=== PATIENT | female | born 1990 | race Caucasian/White ===

== ENCOUNTER 2016-12-05 07:10 | Inpatient (IN) | payer BC ==
[2016-12-05] MEDS ORDERED: Lidocaine 1% 50 ML MDV INJECT PRN (07:49)
[2016-12-05] MEDS ORDERED: Aluminum Hydroxide/Magnesium Hydroxide/Simethicone Susp 30 ML Cup PO PRN (07:49)
[2016-12-05] MEDS ORDERED: Ondansetron 4 MG/2 ML SDV IVPUSH PRN (07:49)
[2016-12-05] MEDS ORDERED: Nalbuphine 20 MG/1 ML Amp IVPUSH PRN (07:49)
[2016-12-05] MEDS ORDERED: Oxytocin/Lactated Ringers 10 UNIT/1,000 ML BAG IV SCH ×2 (08:00→17:15)
[2016-12-05] MEDS: Lactated Ringers 1,000 ML IV SCH ×3 (08:03→20:22)
[2016-12-05] MEDS ORDERED: Ampicillin 2 GM in Sodium Chloride 0.9% 100 ML IV ONE (08:30)
[2016-12-05] MEDS ORDERED: fentaNYL 100 MCG/2 ML SDV EPIDUR PRN (10:28)
[2016-12-05] MEDS ORDERED: diphenhydrAMINE 50 MG/ML SDV IVPUSH PRN (10:28)
[2016-12-05] MEDS ORDERED: ePHEDrine 50 MG/ML SDV IVPUSH PRN (10:28)
[2016-12-05] MEDS ORDERED: Bupivacaine/fentaNYL/NS 100 ML Bag EPIDUR SCH (10:30)
--- NOTE | 2016-12-05 10:59 | PCM.PREANE ---
Preanesthetic Assessment - Anesthesia/Transfusion/Family Hx Anesthesia History: Prior Anesthesia Without Reaction Family History of Anesthesia Reaction: No Transfusion History: No Prior Transfusion(s) - Review of Systems General: No Symptoms Pulmonary: No Symptoms Cardiovascular: No Symptoms Gastrointestinal: No symptoms Neurological: No Symptoms Other: Reports: None - Physical Assessment Pulse: 80 O2 Sat by Pulse Oximetry: 98 Respiratory Rate: 17 Blood Pressure: 137/84 Temperature: 37.1 C Vital Signs: Last Vital Signs Temp 37.1 C 12/05/16 07:56 Pulse 80 12/05/16 07:56 Resp 17 12/05/16 07:56 BP 137/84 12/05/16 07:56 Pulse Ox 98 12/05/16 07:56 Height: 1.65 m Weight: 113.398 kg ASA Class: 2 Mental Status: Alert & Oriented x3 Airway Class: Mallampati = 1 Dentition: Reports: Normal Dentition Thyro-Mental Finger Breadths: 3 Mouth Opening Finger Breadths: 3 ROM/Head Extension: Full Lungs: Clear to auscultation, Normal respiratory effort Cardiovascular: Regular Rate, Regular Rhythm - Lab Values: Laboratory Last Values WBC 13.83 K/mm3 (3.98-10.04) H 12/05/16 08:07 RBC 4.50 M/mm3 (3.98-5.22) 12/05/16 08:07 Hgb 13.6 gm/L (11.2-15.7) 12/05/16 08:07 Hct 41.2 % (34.1-44.9) 12/05/16 08:07 MCV 91.6 fl (79.4-94.8) 12/05/16 08:07 MCH 30.2 pg (25.6-32.2) 12/05/16 08:07 MCHC 33.0 g/dl (32.2-35.5) 12/05/16 08:07 RDW Std Deviation 47.5 fL (36.4-46.3) H 12/05/16 08:07 Plt Count 236 K/mm3 (182-369) 12/05/16 08:07 MPV 10.6 fl (9.4-12.3) 12/05/16 08:07 Neut % (Auto) 81.4 % (34.0-71.1) H 12/05/16 08:07 Lymph % (Auto) 11.1 % (19.3-51.7) L 12/05/16 08:07 [place] % (Auto) 6.9 % (4.7-12.5) 12/05/16 08:07 Eos % (Auto) 0.2 (0.7-5.8) L 12/05/16 08:07 Baso % (Auto) 0.1 % (0.1-1.2) 12/05/16 08:07 Neut # (Auto) 11.24 K/mm3 (1.56-6.13) H 12/05/16 08:07 Lymph # (Auto) 1.54 K/mm3 (1.18-3.74) 12/05/16 08:07 [place] # (Auto) 0.96 K/mm3 (0.24-0.36) H 12/05/16 08:07 Eos # (Auto) 0.03 K/mm3 (0.04-0.36) L 12/05/16 08:07 Baso # (Auto) 0.02 K/mm3 (0.01-0.08) 12/05/16 08:07 - Allergies Allergies/Adverse Reactions: Allergies Allergy/AdvReac Type Severity Reaction Status Date / Time No Known Allergies Allergy Verified 12/05/16 07:48 - Anesthesia Plan Pre-Op Medication Ordered: None - Acknowledgements Anesthesia Type Planned: Epidural Pt an Appropriate Candidate for the Planned Anesthesia: Yes Alternatives and Risks of Anesthesia Discussed w Pt/Guardian: Yes Pt/Guardian Understands and Agrees with Anesthesia Plan: Yes PreAnesthesia Questionnaire - Past Health History Medical/Surgical History: Denies Medical/Surgical History Gastrointestinal History: Reports: GERD - CURRENT (IN HOUSE) MEDS Current Meds: Current Medications Al Hydroxide/Mg Hydroxide (Mag-Al Plus) 30 ml PO Q8H PRN PRN Reason: Heartburn Diphenhydramine HCl (Benadryl) 25 mg IVPUSH Q6H PRN PRN Reason: Itching Ephedrine Sulfate (Ephedrine Sulfate) 5 mg IVPUSH ASDIRECTED PRN PRN Reason: HYPOTENTSION Fentanyl (Sublimaze) 100 mcg EPIDUR Q3H PRN PRN Reason: PAIN Last Admin: 12/05/16 10:53 Dose: 100 mcg Fentanyl/Bupivacaine HCl (Fentanyl/Bupivacaine/Ns 2 Mcg-0.125% 100 Ml) 100 ml EPIDUR ASDIRECTED [facility] Last Admin: 12/05/16 10:53 Dose: 100 ml Ampicillin Sodium 1 gm/ Sodium (Chloride) 100 mls @ 200 mls/hr IV Q4H [facility] Lactated Ringer's (Ringers, Lactated) 1,000 mls @ 100 mls/hr IV ASDIRECTED [facility] Last Admin: 12/05/16 08:03 Dose: 100 mls/hr Oxytocin/Lactated Ringer's (Pitocin In Lr 10 Units/1,000 Ml) 10 unit in 1,000 mls @ 500 mls/hr IV ASDIRECTED [facility] Lidocaine HCl (Xylocaine 1%) 50 ml INJECT ONETIME PRN PRN Reason: perineal pain Nalbuphine HCl (Nubain) 10 mg IVPUSH Q2H PRN PRN Reason: Pain (moderate 4-6) Ondansetron HCl (Zofran) 4 mg IVPUSH Q4H PRN PRN Reason: Nausea/Vomiting Discontinued Medications Ampicillin Sodium 2 gm/ Sodium (Chloride) 100 mls @ 200 mls/hr IV ONETIME ONE Stop: 12/05/16 08:59 Last Admin: 12/05/16 08:05 Dose: 200 mls/hr Preanesthetic Assessment - PHYSICAL ASSESSMENT O2 Sat by Pulse Oximetry: 98 RR: 17 Vital Signs: Last Vital Signs Temp 37.1 C 12/05/16 07:56 Pulse 80 12/05/16 07:56 Resp 17 12/05/16 07:56 BP 137/84 12/05/16 07:56 Pulse Ox 98 12/05/16 07:56 Height: 1.65 m Weight: 113.398 kg - LAB Values: Laboratory Last Values WBC 13.83 K/mm3 (3.98-10.04) H 12/05/16 08:07 RBC 4.50 M/mm3 (3.98-5.22) 12/05/16 08:07 Hgb 13.6 gm/L (11.2-15.7) 12/05/16 08:07 Hct 41.2 % (34.1-44.9) 12/05/16 08:07 MCV 91.6 fl (79.4-94.8) 12/05/16 08:07 MCH 30.2 pg (25.6-32.2) 12/05/16 08:07 MCHC 33.0 g/dl (32.2-35.5) 12/05/16 08:07 RDW Std Deviation 47.5 fL (36.4-46.3) H 12/05/16 08:07 Plt Count 236 K/mm3 (182-369) 12/05/16 08:07 MPV 10.6 fl (9.4-12.3) 12/05/16 08:07 Neut % (Auto) 81.4 % (34.0-71.1) H 12/05/16 08:07 Lymph % (Auto) 11.1 % (19.3-51.7) L 12/05/16 08:07 [place] % (Auto) 6.9 % (4.7-12.5) 12/05/16 08:07 Eos % (Auto) 0.2 (0.7-5.8) L 12/05/16 08:07 Baso % (Auto) 0.1 % (0.1-1.2) 12/05/16 08:07 Neut # (Auto) 11.24 K/mm3 (1.56-6.13) H 12/05/16 08:07 Lymph # (Auto) 1.54 K/mm3 (1.18-3.74) 12/05/16 08:07 [place] # (Auto) 0.96 K/mm3 (0.24-0.36) H 12/05/16 08:07 Eos # (Auto) 0.03 K/mm3 (0.04-0.36) L 12/05/16 08:07 Baso # (Auto) 0.02 K/mm3 (0.01-0.08) 12/05/16 08:07 - ALLERGIES Allergies/Adverse Reactions: Allergies Allergy/AdvReac Type Severity Reaction Status Date / Time No Known Allergies Allergy Verified 12/05/16 07:48
[2016-12-05] MEDS: Ampicillin 1 GM in Sodium Chloride 0.9% 100 ML IV SCH ×2 (12:23→16:22)
--- NOTE | 2016-12-05 15:03 | HP ---
DATE OF ADMISSION: 12/05/2016 ADMISSION DIAGNOSES: A 39 and 6/7th week intrauterine , active labor. HISTORY OF PRESENT ILLNESS: The patient is a 26-year-old, 1, para 0, white female, who is due on 12/06/2016 as determined by an early ultrasound done on 04/16/2016 at 6 and 4/7th weeks' gestational age. She had 2 other ultrasounds done on 07/19/2016 and 08/21/2016 which are consistent with her first ultrasound. She began labor at approximately 0330 hours today and has progressed to manfred every 3-4 minutes, moderate to strong in nature. Her cervix has changed from previous evaluation of 2+ cm/80% effaced/minus 2 station/soft/mid position to 4 cm, 90% effaced, 0 station, very soft, and mid to anterior position. Bag of pedro is intact. She is group B strep positive and antibiotics have been started. We will wait until 4 hours of antibiotics have been in place, second dose has been given for rupture of membranes. heart tones are reassuring at this time. MOLDER FLOOR HISTORY: Last menstrual period was approximate and was on 02/24/2016. Her dates were based upon the 6 and 4/7th week intrauterine ultrasound done on 04/16/2016. The patient had menarche at age 7. Positive hCG was on 03/28/2016. Cycles occur every 30-35 days but again are somewhat irregular and last one was uncertain. COURSE: Has been relatively unremarkable. She is planning to breastfeed. She did decline genetic evaluation. Her Edison Depression Screen score for depression was score of 0 on 07/16/2016. She is interested in an epidural for labor analgesia. Her group B strep screen was positive on urine culture. She has had some hemorrhoidal problems which have resolved towards the end of the . She was initially noted to have suboptimally visualized facial and extremity anatomy on ultrasound but on repeat complete anatomic evaluation showed no abnormalities. The patient was supplemented with progesterone in early because of low progesterone. She plans on nursing. Her care started at 6 weeks and 4 days, with an early ultrasound to confirm viability. The first visit was on 05/22/2016 at 11 and 5/7th weeks. She has had regular care since that time. The weight gain has been from 222 pounds up to 251.6 pounds for 29.6-pound gain. The vital signs have been stable throughout the course. Fundal height growth has been appropriate. LABORATORY TESTING: Shows blood to be O positive with a negative antibody screen at 1st visit. Platelets at first visit were 349. Rubella titer shows immunity. RPR is nonreactive. Group B strep screen was positive. Hepatitis B and HIV assays were both negative. Chlamydia and gonorrhea assays were both negative. Second trimester testing showed a hemoglobin to be normal at 12.9. Platelets have been normal at 266. One-hour GTT was 110. Group B strep screen was positive. ALLERGIES: None. CURRENT MEDICATIONS: 1. vitamins 1 daily. 2. Calcium 500 mg 2 tabs daily. 3. Fiber compound for constipation p.r.n. PAST MEDICAL HISTORY: 1. Progesterone deficiency early in , requiring supplementation. 2. Abnormal Pap smear 7 years ago. On repeat, was normal. PAST SURGICAL HISTORY: Unremarkable. FAMILY HISTORY: No evidence of bleeding abnormalities, blood clotting abnormalities, or anesthesia abnormalities in the family. SOCIAL HISTORY: The patient is . is Vasile Perez. She is an international account manager. She does not use any significant amounts of alcohol, drugs, or tobacco. She lives, again, in [place], [place]. REVIEW OF SYSTEMS: SKIN: Negative. NEUROLOGIC SYSTEM: Negative. CARDIOVASCULAR: Negative. RESPIRATORY: Negative. BREASTS: Changes consistent with - the patient has plans to nurse. GASTROINTESTINAL: Denies any nausea, vomiting, or mucus or blood in her stools. No diarrhea noted. GENITOURINARY: Changes consistent with . MUSCULOSKELETAL: Negative. PHYSICAL EXAMINATION: VITAL SIGNS: On last evaluation in clinic, her blood pressure was 118/64, weight was 251.6 pounds. heart rate was 135. Her initial weight was 222.8 pounds, height was 5 feet 5. Body mass index at that time was 36.9. GENERAL: The patient is a well-developed, well-nourished, pleasant female of stated age, in no acute distress. SKIN: Warm and dry without lesions. LUNGS: Clear with good breath sounds in all lung ballard. CARDIOVASCULAR: Shows regular rate and rhythm without murmurs. BREASTS: Deferred having been done at first visit and found to be normal. ABDOMEN: Protuberant with with last fundal height in clinic at 40 cm. Baby in a vertex presentation by Flako's maneuvers. GENITOURINARY: Cervical exam as above. EXTREMITIES AND NEUROLOGICAL: Within normal limits with the exception of mild edema. ASSESSMENT: 1. Term intrauterine at 39 and 6/7th weeks' gestational age - active labor with progressive cervical dilation. 2. Group B strep status positive - the patient has received first dose of antibiotics today since she is not allergic to penicillins. 3. The patient plans to nurse. 4. Epidural in labor per the patient's desire. 5. Rubella titer shows immunity. PLAN: 1. Anticipate spontaneous vaginal delivery. 2. Epidural p.r.n. per the patient's desire. 3. CBC. 4. Support nursing plans. 5. The patient wishes to circumcise the baby if a boy. MMANDREAS /[id number]
--- NOTE | 2016-12-06 00:42 | PCM.SN ---
- Free Text/Narrative Note: Lilly is a 26-year-old 1 now para 1-0-0-1 female who presented to labor and delivery this morning with regular contractions. Artificial rupture of membranes was performed and she progressed to 9cm fairly quickly. IV pitocin was used to augment contractions and to help the cervix progress to complete dilation. At 0005 hours, a 3110 g (6 lbs 14 oz) male was delivered over a first-degree laceration in an KEILA position. Meconium was noted just before delivery. Cord was clamped x2 and was cut by the father. A 3 vessel cord was noted. Cord blood was obtained. The first-degree laceration was repaired with a running, subcutaneous stitch using 3-0 monocryl. The placenta was then delivered at 0013 hours in Ramirez presentation. It was found to be intact. Apgars were 5 and 8 at 1 and 5 minutes respectively. Estimated blood loss 300cc. Nuchal cord x1 reduced over baby's body. Plans to nurse. Condition good.
[2016-12-06] MEDS ORDERED: Witch Hazel Medicated Pads 100/Jar TOP PRN (01:49)
[2016-12-06] MEDS ORDERED: Benzocaine/Menthol 20%-0.5% Spray 56 GM Canister TOP PRN (01:49)
[2016-12-06] MEDS ORDERED: Docusate Sodium 100 MG Cap PO PRN (01:49)
[2016-12-06] MEDS ORDERED: Acetaminophen 325 MG Tab PO PRN (01:49)
[2016-12-06] MEDS ORDERED: Lanolin 100% Cream 7 GM Tube TOP PRN (01:49)
[2016-12-06] MEDS: Ampicillin 1 GM in Sodium Chloride 0.9% 100 ML IV SCH ×2 (03:38→07:35)
[2016-12-06] MEDS: Ibuprofen 600 MG Tab PO PRN ×2 (03:39→13:38)
--- NOTE | 2016-12-06 05:30 | PCM.SN ---
- Free Text/Narrative Note: 18-year-old 1 para 1001 on the morning of her delivery. Doing well. Minimal lochia. Pain is under good control. Patient is nursing well. Signs stable. Physical exam within normal limits. Assessment/plan: Date of delivery-doing well. Recommend routine care is. Possibly home as early as tomorrow.
[2016-12-07] MEDS: Ibuprofen 600 MG Tab PO PRN ×2 (03:57→21:03)
--- NOTE | 2016-12-07 06:36 | PCM.DCSUM1 ---
Discharge Summary - Hospital Course Brief History: Admitted in labor. No issues. Unremarkable . - Discharge Data Discharge Date: 12/07/16 Discharge Disposition: Home, Self-Care 01 Condition: Good - Discharge Diagnosis/Problem(s) (1) care and examination SNOMED Code(s): 665914283, 519972940, [id number] ICD Code: Z39.2 - ENCOUNTER FOR ROUTINE FOLLOW-UP Status: Acute Current Visit: Yes - Patient Summary/Data Hospital Course: Lilly is a 26-year-old 1 now para 1-0-0-1 female who presented to labor and delivery this morning with regular contractions. Artificial rupture of membranes was performed and she progressed to 9cm fairly quickly. IV pitocin was used to augment contractions and to help the cervix progress to complete dilation. At 0005 hours, a 3110 g (6 lbs 14 oz) male was delivered over a first-degree laceration in an KEILA position. Meconium was noted just before delivery. Cord was clamped x2 and was cut by the father. A 3 vessel cord was noted. Cord blood was obtained. The first-degree laceration was repaired with a running, subcutaneous stitch using 3-0 monocryl. The placenta was then delivered at 0013 hours in Ramirez presentation. It was found to be intact. Apgars were 5 and 8 at 1 and 5 minutes respectively. - Patient Instructions Diet: Usual Diet as Tolerated Activity: No Strenuous Activities Driving: May Drive Today Showering/Bathing: May Shower Notify Provider of: Fever, Increased Pain, Swelling and Redness, Drainage, Nausea and/or Vomiting - Discharge Plan Referrals: Narciso Edwards MD [Physician] - - Discharge Summary/Plan Comment DC Time >30 min.: No - Patient Data Vitals - Most Recent: Last Vital Signs Temp 36.8 C 12/07/16 03:55 Pulse 71 12/07/16 03:55 Resp 16 12/07/16 03:55 BP 128/62 12/07/16 03:55 Pulse Ox 96 12/07/16 03:55 Weight - Most Recent: 113.398 kg I&O - Last 24 hours: Intake & Output 12/06/16 12/06/16 12/07/16 14:59 22:59 06:59 Intake Total 120 0 Balance 120 0 Med Orders - Current: Current Medications Acetaminophen (Tylenol) 650 mg PO Q4H PRN PRN Reason: mild pain or fever Benzocaine/Menthol (Dermoplast Pain Relief [place]) 0 gm TOP ASDIRECTED PRN PRN Reason: Perineal Comfort Measure Last Admin: 12/06/16 03:36 Dose: 1 applic Docusate Sodium (Colace) 100 mg PO BID PRN PRN Reason: Constipation Emollient Ointment (Lansinoh Hpa) 0 gm TOP ASDIRECTED PRN PRN Reason: Sore Nipples Ibuprofen (Motrin) 600 mg PO Q4H PRN PRN Reason: Mild pain or fever Last Admin: 12/07/16 03:57 Dose: 600 mg Witch Destiny (Tucks) 1 pad TOP ASDIRECTED PRN PRN Reason: Hemorrhoid pain Last Admin: 12/06/16 03:37 Dose: 1 applic Discontinued Medications Al Hydroxide/Mg Hydroxide (Mag-Al Plus) 30 ml PO Q8H PRN PRN Reason: Heartburn Diphenhydramine HCl (Benadryl) 25 mg IVPUSH Q6H PRN PRN Reason: Itching Ephedrine Sulfate (Ephedrine Sulfate) 5 mg IVPUSH ASDIRECTED PRN PRN Reason: HYPOTENTSION Fentanyl (Sublimaze) 100 mcg EPIDUR Q3H PRN PRN Reason: PAIN Last Admin: 12/05/16 10:53 Dose: 100 mcg Fentanyl/Bupivacaine HCl (Fentanyl/Bupivacaine/Ns 2 Mcg-0.125% 100 Ml) 100 ml EPIDUR ASDIRECTED [facility] Last Admin: 12/05/16 10:53 Dose: 100 ml Ampicillin Sodium 2 gm/ Sodium (Chloride) 100 mls @ 200 mls/hr IV ONETIME ONE Stop: 12/05/16 08:59 Last Admin: 12/05/16 08:05 Dose: 200 mls/hr Ampicillin Sodium 1 gm/ Sodium (Chloride) 100 mls @ 200 mls/hr IV Q4H [facility] Last Admin: 12/06/16 07:35 Dose: Not Given Lactated Ringer's (Ringers, Lactated) 1,000 mls @ 100 mls/hr IV ASDIRECTED [facility] Last Admin: 12/05/16 20:22 Dose: 100 mls/hr Oxytocin/Lactated Ringer's (Pitocin In Lr 10 Units/1,000 Ml) 10 unit in 1,000 mls @ 500 mls/hr IV ASDIRECTED [facility] Last Admin: 12/06/16 03:37 Dose: 500 mls/hr Oxytocin/Lactated Ringer's (Pitocin In Lr 10 Units/1,000 Ml) 10 unit in 1,000 mls @ 12 mls/hr IV TITRATE [facility]; 2 MUNITS/MIN PRN Reason: Protocol Last Titration: 12/05/16 21:23 Dose: 6 munits/min, 36 mls/hr Lidocaine HCl (Xylocaine 1%) 50 ml INJECT ONETIME PRN PRN Reason: perineal pain Nalbuphine HCl (Nubain) 10 mg IVPUSH Q2H PRN PRN Reason: Pain (moderate 4-6) Ondansetron HCl (Zofran) 4 mg IVPUSH Q4H PRN PRN Reason: Nausea/Vomiting *Q Meaningful Use (DIS) - VTE *Q VTE Criteria *Q: - Stroke *Q Stroke Criteria *Q: - AMI *Q AMI Criteria *Q:
[2016-12-07] MEDS ORDERED: Bupivacaine 0.25% 10 ML SDV ONE (22:22)
[2016-12-08 05:25] VITALS: BP 118/80
--- NOTE | 2016-12-08 06:55 | PCM.PNPP ---
- General Info Date of Service: 12/07/16 Functional Status: Reports: pain controlled - Review of Systems General: Reports: No Symptoms HEENT: Reports: no symptoms Pulmonary: Reports: no symptoms Cardiovascular: Reports: No Symptoms Gastrointestinal: Reports: No symptoms Genitourinary: Reports: no symptoms Musculoskeletal: Reports: no symptoms Skin: Reports: no symptoms Neurological: Reports: No Symptoms Psychiatric: Reports: no symptoms - General Info Date of Service: 12/08/16 - Patient Data Vital Signs - most recent: Last Vital Signs Temp 36.1 C 12/08/16 05:07 Pulse 75 12/08/16 05:07 Resp 16 12/08/16 05:07 BP 118/80 12/08/16 05:07 Pulse Ox 98 12/08/16 05:07 Weight - most recent: 113.398 kg I&O - last 24 hours: Intake & Output 12/07/16 12/07/16 12/08/16 14:59 22:59 06:59 Intake Total 120 480 Balance 120 480 Lab Results - last 24 hrs: Laboratory Results - last 24 hr 12/07/16 Range/Units 07:07 WBC 12.84 H (3.98-10.04) K/mm3 RBC 3.66 L (3.98-5.22) M/mm3 Hgb 11.3 (11.2-15.7) gm/L Hct 34.3 (34.1-44.9) % MCV 93.7 (79.4-94.8) fl MCH 30.9 (25.6-32.2) pg MCHC 32.9 (32.2-35.5) g/dl RDW Std Deviation 49.1 H (36.4-46.3) fL Plt Count 214 (182-369) K/mm3 MPV 10.5 (9.4-12.3) fl Med Orders - Current: Current Medications Acetaminophen (Tylenol) 650 mg PO Q4H PRN PRN Reason: mild pain or fever Benzocaine/Menthol (Dermoplast Pain Relief [place]) 0 gm TOP ASDIRECTED PRN PRN Reason: Perineal Comfort Measure Last Admin: 12/06/16 03:36 Dose: 1 applic Docusate Sodium (Colace) 100 mg PO BID PRN PRN Reason: Constipation Emollient Ointment (Lansinoh Hpa) 0 gm TOP ASDIRECTED PRN PRN Reason: Sore Nipples Ibuprofen (Motrin) 600 mg PO Q4H PRN PRN Reason: Mild pain or fever Last Admin: 12/07/16 21:03 Dose: 600 mg Witch Destiny (Tucks) 1 pad TOP ASDIRECTED PRN PRN Reason: Hemorrhoid pain Last Admin: 12/06/16 03:37 Dose: 1 applic Discontinued Medications Al Hydroxide/Mg Hydroxide (Mag-Al Plus) 30 ml PO Q8H PRN PRN Reason: Heartburn Diphenhydramine HCl (Benadryl) 25 mg IVPUSH Q6H PRN PRN Reason: Itching Ephedrine Sulfate (Ephedrine Sulfate) 5 mg IVPUSH ASDIRECTED PRN PRN Reason: HYPOTENTSION Fentanyl (Sublimaze) 100 mcg EPIDUR Q3H PRN PRN Reason: PAIN Last Admin: 12/05/16 10:53 Dose: 100 mcg Fentanyl/Bupivacaine HCl (Fentanyl/Bupivacaine/Ns 2 Mcg-0.125% 100 Ml) 100 ml EPIDUR ASDIRECTED [facility] Last Admin: 12/05/16 10:53 Dose: 100 ml Ampicillin Sodium 2 gm/ Sodium (Chloride) 100 mls @ 200 mls/hr IV ONETIME ONE Stop: 12/05/16 08:59 Last Admin: 12/05/16 08:05 Dose: 200 mls/hr Ampicillin Sodium 1 gm/ Sodium (Chloride) 100 mls @ 200 mls/hr IV Q4H [facility] Last Admin: 12/06/16 07:35 Dose: Not Given Lactated Ringer's (Ringers, Lactated) 1,000 mls @ 100 mls/hr IV ASDIRECTED [facility] Last Admin: 12/05/16 20:22 Dose: 100 mls/hr Oxytocin/Lactated Ringer's (Pitocin In Lr 10 Units/1,000 Ml) 10 unit in 1,000 mls @ 500 mls/hr IV ASDIRECTED [facility] Last Admin: 12/06/16 03:37 Dose: 500 mls/hr Oxytocin/Lactated Ringer's (Pitocin In Lr 10 Units/1,000 Ml) 10 unit in 1,000 mls @ 12 mls/hr IV TITRATE [facility]; 2 MUNITS/MIN PRN Reason: Protocol Last Titration: 12/05/16 21:23 Dose: 6 munits/min, 36 mls/hr Lidocaine HCl (Xylocaine 1%) 50 ml INJECT ONETIME PRN PRN Reason: perineal pain Nalbuphine HCl (Nubain) 10 mg IVPUSH Q2H PRN PRN Reason: Pain (moderate 4-6) Ondansetron HCl (Zofran) 4 mg IVPUSH Q4H PRN PRN Reason: Nausea/Vomiting - Interaction Disposition, : Pfeifer at Bedside Support Person: - Recovery Exam Fundal Tone: Firm Fundal Level: 1 Fingerbreadths Below Umbilicus Fundal Placement: Midline Lochia Amount: Small Lochia Color: Rubra/Red Perineum Description: Intact, Minimal Bruising/Swelling Episiotomy/Laceration: Approximated Bladder Status: Voiding Urinary Elimination: Not Voiding - Exam General: alert, oriented HEENT: Pupils equal Neck: supple Lungs: Clear to auscultation, Normal respiratory effort Cardiovascular: Regular Rate, Regular Rhythm Skin: warm, dry, intact Wound/Incisions: healing well Neurological: no new focal deficit Psy/Mental Status: alert, normal affect, normal mood - Problem List & Annotations (1) care and examination SNOMED Code(s): 709110227, 383522606, [id number] Code(s): Z39.2 - ENCOUNTER FOR ROUTINE FOLLOW-UP Status: Acute Current Visit: Yes - Problem List Review Problem List Initiated/Reviewed/Updated: Yes - My Orders Last 24 Hours: My Active Orders 12/07/16 06:30 Ready for Discharge [RC] PER UNIT ROUTINE - Assessment Assessment:: . Plans discharge but cancelled. - Plan Plan:: Term delivery. Likely discharge tomorrow.
[2016-12-08] MEDS: Ibuprofen 600 MG Tab PO PRN (07:54)
== END 2016-12-08 09:15 | disposition home or self-care (01) | DRG 560 ==
LOC: JD.OBCHECK 07:10 → JD.OB 07:14 → JD.OBCHECK 07:49 → OBSVTOIN 12-06 00:05 → JD.OB 12-06 00:05
PROVIDERS: ADMIT Obstetrics & Gynecology; ATTEND Obstetrics & Gynecology
PROC: 10E0XZZ Delivery of Products of Conception, External Approach (ICD-10-PCS; principal; 2016-12-06)
PROC: 10907ZC Drainage of Amniotic Fluid, Therapeutic from Products of Conception, Via Natural or Artificial Opening (ICD-10-PCS; 2016-12-06)
PROC: 0HQ9XZZ Repair Perineum Skin, External Approach (ICD-10-PCS; 2016-12-06)
PROC: 00HU33Z Insertion of Infusion Device into Spinal Canal, Percutaneous Approach (ICD-10-PCS; 2016-12-06)
PROC: 3E0R3CZ (ICD-10-PCS; 2016-12-06)
DX: O99.824 Streptococcus B carrier state complicating childbirth (principal); O70.0 First degree perineal laceration during delivery; O77.0 Labor and delivery complicated by meconium in amniotic fluid; O69.81X0 Labor and delivery complicated by cord around neck, without compression, not applicable or unspecified; Z3A.40 40 weeks gestation of pregnancy; Z37.0 Single live birth
CPT/HCPCS: 01967; 36415; 85025; 85027; A9270-GY; J0290; J2590; J3010; J7030; J7120